=== PATIENT | female | born 1985 | race African-American/Black ===

== ENCOUNTER 2016-10-09 17:14 | Emergency (ER) | payer SELFPAY ==
--- NOTE | 2016-10-09 17:24 | ER Document Report ---
ED Medical Screen (RME) - General Stated Complaint: NAUSEA,DIARRHEA,DIZZY,SHOULDER PAIN Mode of Arrival: Ambulatory Information source: Patient Notes: Pt presents with c/o nausea, diarrhea, muscle pain to her left shoulder/upper back for 2 days. Reports constant diarrhea constant, vomiting this am. Pt reports she works in [place] at [employer] comin to work ill. Did not receive flu vaccine this year. Denies nausea at this time. Reports shoulder pops everytime she moves it. I have greeted and performed a rapid initial assessment of this patient. A comprehensive ED assessment and evaluation of the patient, analysis of test results and completion of the medical decision making process will be conducted by additional ED providers. TRAVEL OUTSIDE OF THE [place] IN LAST 30 DAYS: No - Related Data Allergies/Adverse Reactions: No Known Allergies Allergy (Verified 06/30/16 11:33) Past Medical History Musculoskeltal Medical History: Reports Hx Musculoskeletal Trauma Past Surgical History: Reports: Hx Abdominal Surgery - hernia, Hx Section, Hx Cholecystectomy, Hx Oral Surgery - wisdom, Hx Tonsillectomy, Hx Umbilical Hernia - Immunizations Immunizations up to date: Yes Hx Diphtheria, Pertussis, Tetanus Vaccination: Yes - 2013 Physical Exam - Vital signs Vitals: Temp Pulse Resp BP Pulse Ox 98.7 F 91 20 147/79 H 97 10/09/16 17:19 10/09/16 17:19 10/09/16 17:19 10/09/16 17:19 10/09/16 17:19 Course - Vital Signs Vital signs: Temp Pulse Resp BP Pulse Ox 98.7 F 91 20 147/79 H 97 10/09/16 17:19 10/09/16 17:19 10/09/16 17:19 10/09/16 17:19 10/09/16 17:19
--- NOTE | 2016-10-09 18:37 | ER Document Report ---
ED GI/ - General Chief Complaint: Nausea/Vomiting/Diarrhea Stated Complaint: NAUSEA,DIARRHEA,DIZZY,SHOULDER PAIN Mode of Arrival: Ambulatory Notes: Patient says that she has had nausea, vomiting, and diarrhea that started or Tuesday. She says that she has vomited once today and is had about 4 -5 diarrhea stools. She is not having any abdominal pain. Does not have any fever, although she does have some chills and sweats. Patient is also experiencing dizziness, but this has been going on for several months. Also complains of a headache. Patient has left upper posterior shoulder pain that she says has been going on for several months and says she's been here several times for the same pain that 's in the superior aspect of the left upper back. Denies any injury or unusual activity with her left arm. TRAVEL OUTSIDE OF THE [place] IN LAST 30 DAYS: No - Related Data Allergies/Adverse Reactions: No Known Allergies Allergy (Verified 10/09/16 17:23) Past Medical History - General Information source: Patient - Social History Smoking Status: Current Every Day Smoker Cigarette use (# per day): Yes Chew tobacco use (# tins/day): No Frequency of alcohol use: Occasional Drug Abuse: None Family History: Reviewed & Not Pertinent, CVA, DM, Hypertension Patient has suicidal ideation: No Patient has homicidal ideation: No - Past Medical History Cardiac Medical History: Denies: Hx Coronary Artery Disease, Hx Hypertension Endocrine Medical History: Denies: Hx Diabetes Mellitus Type 1, Hx Diabetes Mellitus Type 2 Musculoskeltal Medical History: Reports Hx Musculoskeletal Trauma Past Surgical History: Reports: Hx Abdominal Surgery - hernia, Hx Section, Hx Cholecystectomy, Hx Oral Surgery - wisdom, Hx Tonsillectomy, Hx Umbilical Hernia - Immunizations Immunizations up to date: Yes Hx Diphtheria, Pertussis, Tetanus Vaccination: Yes - 2013 Review of Systems - Review of Systems Notes: REVIEW OF SYSTEMS: CONSTITUTIONAL : Denies fever. EENT: Denies eye, ear, nose or mouth or throat pain or other symptoms. CARDIOVASCULAR: Denies chest pain. RESPIRATORY: Denies cough, chest congestion, or shortness of breath. GASTROINTESTINAL: Denies abdominal pain but says that she is having nausea, vomiting, and diarrhea. GENITOURINARY: Denies difficulty or painful urinating, urinary frequency, blood in urine. MUSCULOSKELETAL: Denies neck pain. Denies joint pain or swelling. See history of present illness regarding upper left back pain. SKIN: Denies rash or skin lesions. NEUROLOGICAL: Denies LOC or altered mental status. Denies headache. Denies sensory loss or motor deficits. ALL OTHER SYSTEMS REVIEWED AND NEGATIVE. Physical Exam - Vital signs Vitals: Temp Pulse Resp BP Pulse Ox 98.7 F 91 20 147/79 H 97 10/09/16 17:19 10/09/16 17:19 10/09/16 17:19 10/09/16 17:19 10/09/16 17:19 Interpretation: Normal - Notes Notes: PHYSICAL EXAMINATION: GENERAL: Well-appearing, in no acute distress. Vital signs are all essentially normal. HEAD: Atraumatic, normocephalic. ENT: oropharynx clear without exudates. Moist mucous membranes. NECK: Normal range of motion, supple. LUNGS: Breath sounds clear and equal bilaterally. HEART: Regular rate and rhythm without murmurs. ABDOMEN: Soft, nontender. No guarding or rebound. No masses. No bruits. BACK: No tenderness throughout entire back. Tender superior left scapular muscles easy passive range of motion of the left shoulder throughout its 6 movements without any significant problem or pain. EXTREMITIES: Normal range of motion without pain. NEUROLOGICAL: Normal speech, normal gait. Normal sensory, motor, and reflex exams. Awake, alert, and oriented x3. Cranial nerves normal. SKIN: Warm, dry, no rashes. Course - Vital Signs Vital signs: Temp Pulse Resp BP Pulse Ox 98.3 F 84 20 139/74 H 98 10/09/16 18:53 10/09/16 18:53 10/09/16 18:53 10/09/16 18:53 10/09/16 18:53 Discharge - Discharge Clinical Impression: Vomiting and diarrhea, Upper back pain on left side Condition: Stable Disposition: HOME, SELF-CARE Additional Instructions: VOMITING: Vomiting (or nausea without vomiting) can be caused by many other different problems. It can mean that something's wrong with the stomach, such as ulcers or inflammation or the intestinal tract, such as appendicitis. But it can also be a symptom of a problem that has nothing to do with the stomach or intestines. Vomiting is common with severe headaches, earaches, tonsillitis, and kidney infections, etc. We see it with pneumonia or heart attacks. Drugs can cause nausea and vomiting. Many abdominal problems cause vomiting; for example, gallstones, kidney stones, pancreatitis, and intestinal obstruction ( blocked bowels). In most cases, curing the vomiting depends on fixing the problem that caused it. For temporary relief, we may use an anti-nausea medicine. For home use, we can prescribe suppositories, chewable pills, pills that dissolve in the mouth, or liquid anti-nausea drugs. If the vomiting seems to be caused by a problem in the stomach, acid-suppressing drugs may be prescribed as well. It's important to avoid dehydration. Sip small amounts of clear liquids ( soft drinks, tea, broth, etc) . Try to take fluids frequently even if you are vomiting to prevent dehydration. Take increasing amounts of fluid and when liquids are being consumed successfully, advance to small amounts of bland food (toast, soups, mashed potatoes, etc.) until you are able to resume a regular diet. Avoid aspirin, tobacco, and alcohol. If the vomiting worsens, if the problem that's making you vomit worsens, or if there's evidence of bleeding in the stomach (such as black, tarry stool, or bloody or black vomit), you should return immediately. Also, return if abdominal pain worsens or becomes localized to one area or you develop high fever. Call your doctor if you aren't improved in 24 hours. DIARRHEA, NON-SPECIFIC: Diarrhea means frequent, watery stools. There are many causes. Any problem that keeps the intestinal tract from absorbing water from the stool can lead to diarrhea. A sudden new diarrhea problem is usually caused by a virus, food sensitivity, toxic bacteria, or drugs. In this case, we expect the problem to go away soon. Testing is done only if you seem seriously ill from the diarrhea. If you have chronic diarrhea, or diarrhea that keeps coming back, we need to find out why. Chronic diarrhea can be due to inflammation of the bowels such as Crohn's disease or ulcerative colitis, food sensitivity such as intolerance to lactose or wheat protein, irritable bowel syndrome, and other problems. If your diarrhea is a significant problem but it's not clear why you have it, we' ll refer you to a specialist for further testing. During an episode of diarrhea, drink small amounts (two to six ounces) of clear liquids (soft drinks, sport drinks, herb teas, broth, etc). Take fluids frequently to prevent dehydration. It's usually not a problem to take mild anti- diarrhea medication such as Kaopectate or Pepto-Bismol. As the diarrhea eases, advance to small amounts of bland food (mashed potato, toast) for 24 hours. Call the physician if blood appears in your vomit or stool, if vomiting lasts longer than 24 hours, if the abdominal pain worsens or becomes localized to one area, if you develop high fever, or if you become lightheaded and weak. VIRAL SYNDROME: The physician has diagnosed a viral infection. Viruses not only cause "colds," but can cause many different symptoms including generalized aching, fever, headache, cough, diarrhea, nausea, vomiting, and fatigue. The treatment, for the most part, is simply relief of symptoms. This means that antibiotics are usually not given. Rest, fluids, pain medications and, occasionally, medication for the specific symptoms that are most bothersome will be prescribed. Use good handwashing to avoid passing the virus to others. Shared toys should be cleaned with disinfectant. Clean the toilets, sinks, and counter surfaces in bathrooms. Launder clothing in hot water. Contact the physician if you develop any new or unusual symptoms such as severe headache, stiff neck, high fever, chest pain, productive cough, or shortness of breath. You should be rechecked if you don't see marked improvement within seven to 10 days. ANTINAUSEA MEDICATION: You have been given a medication to suppress nausea and vomiting. This type of medication can be given as a shot, pill, or suppository. It will usually last for many hours. Pills and shots usually last six to eight hours. For the typical illness, only one or two doses of the medication may be necessary. Mild lightheadedness may occur. This type of medicine can cause drowsiness. Do not drive or operate dangerous machinery while under its influence. Do not mix with alcohol. See your doctor at once if you have muscle spasms or tightness, or uncontrollable motions (particularly of the neck, mouth, or jaw). Persistent vomiting or severe lightheadedness should also be evaluated by the physician. Muscle Strain of the left shoulder: You have strained a muscle -- torn the fibers within the muscle. This often occurs with strenuous exertion, or during an injury that suddenly stretches the muscle. The seriousness of a strain varies. Some strains heal within days, others cause problems for months. X-rays cannot show a muscle strain. X-rays are taken only if symptoms suggest that a fracture could be present. The usual treatment of a muscle strain is rest and ice packs. Sometimes, a sling, splint, or crutches may be necessary to rest the muscle. The muscle can be used again once pain subsides. Severe strains require a special exercise and stretching program to prevent permanent stiffness and disability. Your doctor will advise you if this will be necessary. Call the doctor immediately if pain or swelling becomes severe, or if numbness or discoloration develop. Ultram Ultram is an excellent drug for pain relief. It is not a narcotic, but it works in a similar way. Ultram can take up to two hours for full effect. Although not addicting, Ultram is best avoided in patients with a history of drug abuse. Ultram should not be used with alcohol, sleeping pills, or narcotics. If you're prone to seizures, Ultram can make you more likely to have a seizure. Ultram can be hazardous when combined with MAO-inhibitor antidepressants (such as Nardil or Parnate). Be sure your doctor is aware of all medicines you are taking. Persons with severe liver or kidney disease should increase the time between doses of Ultram. Discuss this with your doctor if you're uncertain. Side effects of Ultram can include dizziness, nausea, constipation, sleepiness, and itching. (These side effects are also seen with narcotic pain medicines.) Please call your doctor if you have other disturbing effects. FOLLOW-UP CARE: If you have been referred to a physician for follow-up care, call the physician s office for an appointment as you were instructed or within the next two days. If you experience worsening or a significant change in your symptoms, notify the physician immediately or return to the Emergency Department at any time for re-evaluation. If you continue to have pain in that left shoulder as you describe having, I recommend you follow-up with a local orthopedic surgeon for reevaluation. I provided you with the contact information for Dr. Diaz elsewhere in these discharge instructions. Prescriptions: Tramadol HCl [Ultram] 50 mg PO Q4HP PRN #15 tablet PRN Reason: Promethazine HCl [Phenergan 25 mg Tablet] 1 - 2 tab PO Q6HP PRN #15 tablet PRN Reason: Forms: Return to Work Referrals: BENIGNO DIAZ MD [ACTIVE STAFF] - Follow up as needed
[2016-10-09 18:55] VITALS: BP 139/74
== END 2016-10-09 18:55 | disposition home or self-care (01) ==
LOC: ER 17:14
DX: R11.2 Nausea with vomiting, unspecified (principal); R19.7 Diarrhea, unspecified; M54.89 Other dorsalgia; R42 Dizziness and giddiness; M25.512 Pain in left shoulder; R51 Headache; F17.210 Nicotine dependence, cigarettes, uncomplicated
CPT/HCPCS: 87804; 99284

== ENCOUNTER 2016-12-17 23:04 | Emergency (ER) | payer SELFPAY ==
[2016-12-18] MEDS ORDERED: HYDROCODONE/ACETAMINOPHEN 5-325 MG TABLET PO ONE (00:37)
--- NOTE | 2016-12-18 00:38 | ER Document Report ---
HPI - HPI Patient complains to provider of: left foot and leg pain Pain Level: 4 Context: Patient is a 31-year-old female that comes emergency department for chief complaint of pain to her left foot and corbett, she states symptoms have been worsening for over 2 weeks, she states she now regularly feels sharp pain in her heel towards the back (not on the bottom) and also sharp pain over the mid corbett area. She is uncertain of injury. She states the area feels swollen. She denies history of the same. She denies any daily medications or any known past medical history. - REPRODUCTIVE LMP: 11-21-16 Reproductive: DENIES: : - DERM Skin Color: Normal Past Medical History - General Information source: Patient - Social History Smoking Status: Never Smoker Drug Abuse: None Lives with: Family Family History: Reviewed & Not Pertinent, CVA, DM, Hypertension Patient has suicidal ideation: No Patient has homicidal ideation: No - Past Medical History Cardiac Medical History: Denies: Hx Coronary Artery Disease, Hx Hypertension Endocrine Medical History: Denies: Hx Diabetes Mellitus Type 1, Hx Diabetes Mellitus Type 2 Renal/ Medical History: Denies: Hx Peritoneal Dialysis Musculoskeltal Medical History: Reports Hx Musculoskeletal Trauma Past Surgical History: Reports: Hx Abdominal Surgery - hernia, Hx Section, Hx Cholecystectomy, Hx Oral Surgery - wisdom, Hx Tonsillectomy, Hx Umbilical Hernia - Immunizations Immunizations up to date: Yes Hx Diphtheria, Pertussis, Tetanus Vaccination: Yes - 2013 [facility] Provider Document - CONSTITUTIONAL General Appearance: WD/WN, Obese - INFECTION CONTROL TRAVEL OUTSIDE OF THE [place] IN LAST 30 DAYS: No - HEENT HEENT: Atraumatic, Normocephalic - NECK Neck: Normal Inspection - RESPIRATORY Respiratory: Breath Sounds Normal, No Respiratory Distress O2 Sat by Pulse Oximetry: 96 - CARDIOVASCULAR Cardiovascular: Regular Rate, Regular Rhythm - GI/ABDOMEN Gastrointestinal: Abdomen Soft, Abdomen Non-Tender - MUSCULOSKELETAL/EXTREMETIES Musculoskeletal/Extremeties: MAEW, FROM, Tender - There is tenderness over the left heel. I do not appreciate any significant findings over the left corbett area with no swelling, nonspecific area of tenderness, no abnormal erythema, normal distal neurovascular exam, normal lower extremity exam otherwise. - NEURO Level of Consciousness: Awake, Alert, Appropriate Motor/Sensory: No Motor Deficit, No Sensory Deficit Course - Re-evaluation Re-evalutation: X-rays with no abnormality except for widening of the pad of the heel. Patient is tender over the urine generally. Recommended supportive shoes, providing with treatments for this, referring to podiatry for additional management. Providing with crutches. Discussed follow-up and return precautions, patient states understanding and agreement. - Vital Signs Vital signs: Temp Pulse Resp BP Pulse Ox 98.1 F 85 18 156/79 H 96 12/17/16 23:42 12/17/16 23:42 12/17/16 23:42 12/17/16 23:42 12/17/16 23:42 Discharge - Discharge Clinical Impression: Left leg pain, Pain of left heel Condition: Stable Disposition: HOME, SELF-CARE Instructions: Use of Crutches ([facility]) Additional Instructions: X-ray shows nonspecific thickening of the left heel. No other abnormalities on x-rays. No signs of infection on examination, no soft tissue swelling suggesting other abnormality. I recommend taking the anti-inflammatory and pain medicine, elevating your feet for the next couple of days, if symptoms continue in your heel follow-up with the podiatry referral. Use the crutches for the next 2-3 days if needed. Return to the emergency department for any concerning worsening symptoms such as redness, swelling, fever, or other concerning symptoms. Prescriptions: Hydrocodone/Acetaminophen [Cl[place] 5-325 mg Tablet] 1 - 2 tab PO ASDIR #8 tablet Naproxen 500 mg PO BID #20 tablet Forms: Elevated Blood Pressure Referrals: PEDRO ROMERO DPM [ACTIVE STAFF] - Follow up as needed
[2016-12-18 05:05] VITALS: BP 145/70
== END 2016-12-18 04:15 | disposition home or self-care (01) ==
LOC: ER 23:04
DX: M79.672 Pain in left foot (principal); M79.605 Pain in left leg; E66.9 Obesity, unspecified; Z90.49 Acquired absence of other specified parts of digestive tract
CPT/HCPCS: 99283

== ENCOUNTER 2017-03-16 15:52 | Emergency (ER) | payer SELFPAY ==
[2017-03-16] MEDS ORDERED: CEPHALEXIN 500 MG CAPSULE PO ONE (17:48)
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
[2017-03-16 18:26] VITALS: BP 147/94
== END 2017-03-16 18:28 | disposition home or self-care (01) ==
LOC: ER 15:52
DX: L03.115 Cellulitis of right lower limb (principal); L03.116 Cellulitis of left lower limb; F17.210 Nicotine dependence, cigarettes, uncomplicated; Z71.6 Tobacco abuse counseling
CPT/HCPCS: 99283

== ENCOUNTER 2017-09-14 16:19 | Emergency (ER) | payer SELFPAY ==
[2017-09-14 16:52] VITALS: BP 154/80
[2017-09-14] MEDS ORDERED: LORATADINE 10 MG TABLET PO ONE (17:32)
[2017-09-14] MEDS ORDERED: PSEUDOEPHEDRINE HCL 30 MG TABLET PO ONE (17:33)
[2017-09-14] MEDS ORDERED: ACETAMINOPHEN 325 MG TABLET PO ONE (17:33)
[2017-09-14] MEDS ORDERED: GUAIFENESIN 600 MG TABLET.SA PO ONE (17:33)
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
== END 2017-09-14 17:50 | disposition home or self-care (01) ==
LOC: ER 16:19
DX: J06.9 Acute upper respiratory infection, unspecified (principal); R05 Cough; J02.9 Acute pharyngitis, unspecified; R51 Headache; M79.1 Myalgia; R68.83 Chills (without fever); R09.81 Nasal congestion; R11.0 Nausea; J34.89 Other specified disorders of nose and nasal sinuses; F17.210 Nicotine dependence, cigarettes, uncomplicated; Z71.6 Tobacco abuse counseling
CPT/HCPCS: 99283

== ENCOUNTER 2018-07-08 20:23 | Emergency (ER) | payer OTHER ==
[2018-07-08] MEDS ORDERED: NAPROXEN 250 MG TABLET PO ONE (21:49)
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
[2018-07-08 22:54] VITALS: BP 145/81
== END 2018-07-08 22:30 | disposition home or self-care (01) ==
LOC: ER 20:23
DX: M25.512 Pain in left shoulder (principal); V49.50XA Passenger injured in collision with unspecified motor vehicles in traffic accident, initial encounter; F17.210 Nicotine dependence, cigarettes, uncomplicated
CPT/HCPCS: 99283